=== PATIENT | female | born 1995 | race Two or more races ===

== ENCOUNTER 2023-02-26 14:22 | Outpatient (CLI) | payer OTHER | END 2023-02-26 16:50 | disposition home or self-care (01) | LOC: PRENATAL 14:22 | PROVIDERS: ATTEND Obstetrics & Gynecology Maternal & Fetal Medicine | DX: O36.80X0 Pregnancy with inconclusive fetal viability, not applicable or unspecified (principal); Z36.82 Encounter for antenatal screening for nuchal translucency; O99.210 Obesity complicating pregnancy, unspecified trimester; O10.019 Pre-existing essential hypertension complicating pregnancy, unspecified trimester; Z3A.13 13 weeks gestation of pregnancy ==

== ENCOUNTER → 2023-04-09 10:33 | Outpatient (CLI) | payer OTHER | END | disposition home or self-care (01) | LOC: PRENATAL 10:33 | PROVIDERS: ATTEND Obstetrics & Gynecology Maternal & Fetal Medicine | DX: O35.3XX0 Maternal care for (suspected) damage to fetus from viral disease in mother, not applicable or unspecified (principal); O99.210 Obesity complicating pregnancy, unspecified trimester; O10.019 Pre-existing essential hypertension complicating pregnancy, unspecified trimester; O44.00 Complete placenta previa NOS or without hemorrhage, unspecified trimester; Z3A.19 19 weeks gestation of pregnancy ==

== ENCOUNTER 2023-06-07 14:10 | Outpatient (CLI) | payer OTHER | END 2023-06-07 14:11 | disposition home or self-care (01) | LOC: PRENATAL 14:10 | PROVIDERS: ATTEND Obstetrics & Gynecology Maternal & Fetal Medicine | DX: O26.849 Uterine size-date discrepancy, unspecified trimester (principal); O99.210 Obesity complicating pregnancy, unspecified trimester; O10.019 Pre-existing essential hypertension complicating pregnancy, unspecified trimester; Z3A.28 28 weeks gestation of pregnancy ==

== ENCOUNTER 2023-07-23 10:43 | Outpatient (CLI) | payer OTHER | END 2023-07-23 10:44 | disposition home or self-care (01) | LOC: PRENATAL 10:43 | PROVIDERS: ATTEND Obstetrics & Gynecology Maternal & Fetal Medicine | DX: O26.849 Uterine size-date discrepancy, unspecified trimester (principal); O36.8199 Decreased fetal movements, unspecified trimester, other fetus; O10.019 Pre-existing essential hypertension complicating pregnancy, unspecified trimester; Z3A.34 34 weeks gestation of pregnancy ==

== ENCOUNTER 2023-08-14 14:15 | Inpatient (IN) | payer OTHER ==
[~2023-08-14] VITALS: Ht 167.6 cm; Wt 148.3 kg
[2023-08-27] MEDS ORDERED: OXYTOCIN 20 UNITS/500ML RL PIGGYBAG IV ONE (08:54)
[2023-08-27] MEDS ORDERED: OXYTOCIN 500 ML IV SCH (09:00)
[2023-08-27] MEDS ORDERED: MORPHINE SULFATE 4 MG/ML VIAL IV ONE (09:00)
[2023-08-27 09:05] LABS: HEMATOCRIT 36.3 % (36.0-45.00); HEMOGLOBIN 12.3 g/dL (12.0-15.00); MEAN CELL VOLUME 85.1 fL (80.00-100.00); MEAN CORPUSCULAR HEMOGLOBIN 28.8 pg (27.00-32.0); MEAN CORPUSCULAR HGB CONC 33.8 g/dl (32.0-36.0); PLATELET COUNT 229 K/uL (150-450); RED BLOOD COUNT 4.27 M/uL (4.00-6.00); RED CELL DISTRIBUTION WIDTH 16.6 % (11.5-14.5); URINE APPEARANCE Cloudy; URINE BILIRRUBIN Negative (NEGATIVE); URINE COLOR Dark Yellow; URINE GLUCOSE Negative (NEGATIVE); URINE LEUKOCYTE Trace; URINE NITRATE Negative; URINE PROTEIN 30 (NEGATIVE)
[2023-08-27 09:06] LABS: URINE BACTERIA 9162.5 uL (0.0-1933); URINE EPITHELIAL CELLS 40.8 uL (0.0-38.8); URINE WBC 112.5 uL (0.0-23.2)
[2023-08-27 09:27] LABS: INR < 0.93; PARTIAL THROMBOPLASTIN TIME 25.7 SECONDS (22.0-34.0); PROTHROMBIN TIME 9.6 SECONDS (9.0-11.5)
[2023-08-27 09:44] LABS: URINE BLOOD Moderate
[2023-08-27] MEDS ORDERED: ERYTHROMYCIN BASE 3.5 GM OINT...G. OP ONE (17:42)
[2023-08-27] MEDS ORDERED: OXYTOCIN 10 UNITS/ML VIAL ONE (17:42)
[2023-08-27] MEDS ORDERED: MEPERIDINE HCL/PF 50 MG/ML VIAL IM PRN (19:15)
[2023-08-27] MEDS ORDERED: PROMETHAZINE HCL 50 MG/ML AMPUL IM PRN (19:15)
[2023-08-27 22:48] LABS: ABG PO2 29.2 mmHg (80-100); ABG pCO2 47.4 mmHg (35-45); BASE EXCESS -3.9 mmol/l; BICARBONATE 22.8 mmol/l (23-25); SaO2 46.7 %
[2023-08-27 22:49] LABS: Tco2 24.2 mmol/l; o2 21 %
[2023-08-28 07:09] LABS: HEMATOCRIT 31.7 % (36.0-45.00); MEAN CELL VOLUME 83.2 fL (80.00-100.00); MEAN CORPUSCULAR HEMOGLOBIN 28.8 pg (27.00-32.0); MEAN CORPUSCULAR HGB CONC 34.6 g/dl (32.0-36.0); PLATELET COUNT 192 K/uL (150-450); RED BLOOD COUNT 3.81 M/uL (4.00-6.00); RED CELL DISTRIBUTION WIDTH 16.5 % (11.5-14.5)
[2023-08-28] MEDS ORDERED: OxyCODONE HCL/APAP UD (PERCOCET) PO PRN (08:00)
[2023-08-28] MEDS ORDERED: DOCUSATE SODIUM 100MG CAP PO SCH (09:00)
[2023-08-28] MEDS ORDERED: SIMETHICONE 125 MG CAPSULE PO SCH (09:00)
[2023-08-28] MEDS ORDERED: PNV,CALCIUM 72/IRON/FOLIC ACID 1 TAB TABLET PO SCH (09:00)
[2023-08-29] MEDS ORDERED: LABETALOL HCL 200 MG TABLET PO SCH (13:44)
[2023-08-29] MEDS ORDERED: FAMOtidine 20 MG TABLET PO ONE (13:45)
[2023-08-29] MEDS ORDERED: IBUprofen 600 MG TABLET PO SCH (14:00)
== END 2023-08-30 15:37 | disposition home or self-care (01) | DRG 788 ==
LOC: OB/GYN 08-27 07:20 → LDR 08-27 07:20 → OB/GYN 08-27 10:25 → LDR 08-30 14:15 → OB/GYN 08-30 15:37
PROVIDERS: ADMIT Obstetrics & Gynecology; ATTEND Obstetrics & Gynecology
PROC: 4A1HXCZ Monitoring of Products of Conception, Cardiac Rate, External Approach (ICD-10-PCS; 2023-08-27)
PROC: 10D00Z1 Extraction of Products of Conception, Low, Open Approach (ICD-10-PCS; principal; 2023-08-27 17:00)
DX: O33.8 Maternal care for disproportion of other origin (principal); Z3A.39 39 weeks gestation of pregnancy; Z37.0 Single live birth; Z20.822 Contact with and (suspected) exposure to COVID-19

== ENCOUNTER 2023-09-07 12:55 | Inpatient (IN) | payer OTHER ==
[~2023-09-07] VITALS: Ht 167.6 cm; Wt 137.0 kg
[2023-09-07] MEDS ORDERED: CEFTRIAXONE SODIUM 1,000 MG VIAL IV ONE (16:30)
[2023-09-07] MEDS ORDERED: ACETAMINOPHEN 500 MG GEL..CAP PO ONE (16:45)
[2023-09-07] MEDS ORDERED: 0.9 % SODIUM CHLORIDE 1,000 ML IV ONE (16:45)
[2023-09-07 17:47] LABS: HEMATOCRIT 35.3 % (36.0-45.00); HEMOGLOBIN 11.7 g/dL (12.0-15.00); MEAN CELL VOLUME 84.9 fL (80.00-100.00); MEAN CORPUSCULAR HEMOGLOBIN 28.1 pg (27.00-32.0); MEAN CORPUSCULAR HGB CONC 33.1 g/dl (32.0-36.0); PLATELET COUNT 392 K/uL (150-450); RED BLOOD COUNT 4.16 M/uL (4.00-6.00); RED CELL DISTRIBUTION WIDTH 16.3 % (11.5-14.5)
[2023-09-07 17:58] LABS: ALBUMIN 2.9 gm/dL (3.4-5.0); BILIRUBIN TOTAL 0.4 mg/dL (0.3-1.2); CALCIUM 9.4 mg/dL (8.5-10.1); CREATININE SERUM 0.93 mg/dL (0.55-1.02); GFR 72.87; GLOBULINA 4.7 G/DL (2.4-3.5); POTASSIUM 3.92 mEq/L (3.5-5.1); TOTAL PROTEIN 7.6 gm/dL (6.4-8.2)
[2023-09-08] MEDS ORDERED: CEFTRIAXONE SODIUM 1,000 MG in DEXTROSE 5 % IN WATER 100 ML IV SCH (09:00)
[2023-09-08] MEDS ORDERED: METRONIDAZOLE/SODIUM CHLORIDE 100 ML IV SCH (11:16)
[2023-09-08] MEDS ORDERED: LINEZOLID IN DEXTROSE 5% 300 ML IV SCH (11:16)
[2023-09-08] MEDS ORDERED: CHLORHEXIDINE GLUCONATE 120 ML BOTTLE TOP SCH (11:17)
[2023-09-09] MEDS ORDERED: CEFTRIAXONE SODIUM 1,000 MG VIAL ONE (07:57)
[2023-09-09] MEDS ORDERED: LINEZOLID IN DEXTROSE 5% 300 ML IV SCH (14:00)
[2023-09-09] MEDS ORDERED: FAMOtidine 20 MG TABLET PO SCH (21:00)
[2023-09-10] MEDS ORDERED: LACTOBACILLUS ACIDOPHILUS 1 CAP CAP PO SCH (09:00)
[2023-09-10] MEDS ORDERED: AMPICILLIN SODIUM/SULBACTAM NA 3,000 MG in 0.9 % SODIUM CHLORIDE 100 ML IV SCH (14:15)
[2023-09-10] MEDS ORDERED: LINEZOLID 600 MG TABLET PO SCH (17:00)
[2023-09-12 15:57] LABS: HEMATOCRIT 32.2 % (36.0-45.00); HEMOGLOBIN 10.6 g/dL (12.0-15.00); MEAN CELL VOLUME 83.1 fL (80.00-100.00); MEAN CORPUSCULAR HEMOGLOBIN 27.3 pg (27.00-32.0); MEAN CORPUSCULAR HGB CONC 32.8 g/dl (32.0-36.0); PLATELET COUNT 319 K/uL (150-450); RED BLOOD COUNT 3.88 M/uL (4.00-6.00); RED CELL DISTRIBUTION WIDTH 16.3 % (11.5-14.5)
[2023-09-14] MEDS ORDERED: GUAIFENESIN 200 MG/10 ML BLIST.PACK PO SCH (09:00)
[2023-09-16] MEDS ORDERED: METRONIDAZOLE/SODIUM CHLORIDE 100 ML IV SCH (10:49)
[2023-09-16] MEDS ORDERED: IRON/V.C/V.B12/FOLIC A/VIT. E 1 CAPL CAPLET PO SCH (18:57)
[2023-09-16] MEDS ORDERED: ACETAMINOPHEN 325 MG TABLET PO PRN (19:00)
== END 2023-09-17 11:51 | disposition home or self-care (01) | DRG 776 ==
LOC: ER 12:55 → OB/GYN 09-08 12:12
PROVIDERS: Emergency Medicine; Internal Medicine Infectious Disease; ADMIT Obstetrics & Gynecology; ATTEND Obstetrics & Gynecology
PROC: 8E0ZXY6 Isolation (ICD-10-PCS; principal; 2023-09-08)
PROC: B54NZZZ Ultrasonography of Left Upper Extremity Veins (ICD-10-PCS; 2023-09-14)
DX: O86.09 Infection of obstetric surgical wound, other surgical site (principal); I82.612 Acute embolism and thrombosis of superficial veins of left upper extremity; Z20.822 Contact with and (suspected) exposure to COVID-19; B96.4 Proteus (mirabilis) (morganii) as the cause of diseases classified elsewhere; B95.2 Enterococcus as the cause of diseases classified elsewhere; B96.89 Other specified bacterial agents as the cause of diseases classified elsewhere; B96.1 Klebsiella pneumoniae [K. pneumoniae] as the cause of diseases classified elsewhere